=== PATIENT | male | born 1955 | race Caucasian/White ===

== ENCOUNTER 2024-07-24 06:50 | Day surgery (SDC) | payer MEDICARE, OTHER ==
[~2024-07-24 06:50] MED LIST: Midazolam 1 MG/ML 2 ML SDV ONE; fentaNYL 100 MCG/2 ML SDV ONE
[2024-07-24] MEDS ORDERED: Midazolam 1 MG/ML 2 ML SDV IV ONE (06:51)
[2024-07-24] MEDS ORDERED: fentaNYL 100 MCG/2 ML SDV IV ONE (06:51)
[2024-07-24] MEDS: Dextrose 5%-0.45% NaCl 1,000 ML IV SCH (07:24)
[2024-07-24] MEDS: fentaNYL 100 MCG/2 ML SDV IV ONE ×2 (08:11→08:12)
[2024-07-24] MEDS: Midazolam 1 MG/ML 2 ML SDV IV ONE ×3 (08:12→08:17)
== END 2024-07-24 09:47 | disposition home or self-care (01) ==
LOC: DL.ENDO 06:50
PROVIDERS: ATTEND Internal Medicine Gastroenterology
DX: Z12.11 Encounter for screening for malignant neoplasm of colon (principal); R19.5 Other fecal abnormalities; I10 Essential (primary) hypertension; E78.00 Pure hypercholesterolemia, unspecified; Z88.8 Allergy status to other drugs, medicaments and biological substances; Z87.891 Personal history of nicotine dependence
CPT/HCPCS: J2250; J3010; J7799